=== PATIENT | male | born 1990 | race American Indian/Alaskan Native ===

== ENCOUNTER 2018-08-14 21:15 | Emergency (ER) | payer MEDICAID ==
[2018-08-15] MEDS ORDERED: MOTRIN PO ONE (02:40)
--- NOTE | 2018-08-15 02:45 | Emergency Department Report ---
ED ENT HPI - General Chief complaint: Dental/Oral Stated complaint: H/A; RT JAW PAIN Time Seen by Provider: 08/15/18 02:21 Source: patient Mode of arrival: Ambulatory Limitations: No Limitations - History of Present Illness Initial comments: 28-year-old -Citizen Of The [place] male with a past medical history paranoid schizophrenia comes in complaining of right jaw pain 3 days. He reports he took a Babay aspirin today which didn't help. Patient is unaware that needs to be repaired. MD complaint: tooth pain -: days(s) (3) Location: tooth # (30,5) Severity scale (0 -10): 6 Quality: aching Consistency: intermittent Improves with: none Worsens with: none - Related Data Previous Rx's Medication Instructions Recorded Last Taken Type Amoxicillin [Amoxicillin TAB] 875 mg PO BID #20 tablet 08/15/18 Unknown Rx Ibuprofen [Motrin 800 MG tab] 800 mg PO Q8HR #30 tablet 08/15/18 Unknown Rx Allergies Allergy/AdvReac Type Severity Reaction Status Date / Time bee sting Allergy Swelling Uncoded 08/14/18 22:39 ED Dental HPI - General Chief complaint: Dental/Oral Stated complaint: H/A; RT JAW PAIN Time Seen by Provider: 08/15/18 02:21 Source: patient Mode of arrival: Ambulatory Limitations: No Limitations - Related Data Previous Rx's Medication Instructions Recorded Last Taken Type Amoxicillin [Amoxicillin TAB] 875 mg PO BID #20 tablet 08/15/18 Unknown Rx Ibuprofen [Motrin 800 MG tab] 800 mg PO Q8HR #30 tablet 08/15/18 Unknown Rx Allergies Allergy/AdvReac Type Severity Reaction Status Date / Time bee sting Allergy Swelling Uncoded 08/14/18 22:39 ED Review of Systems ROS: Stated complaint: H/A; RT JAW PAIN Other details as noted in HPI ED Past Medical Hx - Past Medical History Previous Medical History?: Yes Hx Hypertension: Yes Hx Psychiatric Treatment: Yes (paranoid schizophrenia) - Surgical History Past Surgical History?: Yes Additional Surgical History: gynomastia, circumcission - Social History Smoking Status: Former Smoker Substance Use Type: None - Medications Home Medications: Home Medications Medication Instructions Recorded Confirmed Last Taken Type Amoxicillin [Amoxicillin TAB] 875 mg PO BID #20 tablet 08/15/18 Unknown Rx Ibuprofen [Motrin 800 MG tab] 800 mg PO Q8HR #30 tablet 08/15/18 Unknown Rx ED Physical Exam - General Limitations: No Limitations ED Course Vital Signs 08/14/18 22:39 Temperature 98.8 F Pulse Rate 89 Respiratory 16 Rate Blood Pressure 147/84 O2 Sat by Pulse 98 Oximetry Critical care attestation.: If time is entered above; I have spent that time in minutes in the direct care of this critically ill patient, excluding procedure time. ED Disposition Clinical Impression: Tooth ache Disposition: DC- TO HOME OR SELFCARE Is pt being admited?: No Does the pt Need Aspirin: No Condition: Stable Instructions: Toothache (ED), Dental Caries (ED) Additional Instructions: León antibiotics as prescribed take pain medication as needed and follow-up with a dentist. Prescriptions: Amoxicillin [Amoxicillin TAB] 875 mg PO BID #20 tablet Ibuprofen [Motrin 800 MG tab] 800 mg PO Q8HR #30 tablet Referrals: PRIMARY CARE, [Primary Care Provider] - 3-5 Days [facility] [Outside] - 3-5 Days [facility] [Outside] - 3-5 Days [facility] [Outside] - 3-5 Days
[2018-08-15 02:57] VITALS: BP 144/84
== END 2018-08-15 02:57 | disposition home or self-care (01) ==
LOC: ED 21:15
DX: K08.89 Other specified disorders of teeth and supporting structures (principal); I10 Essential (primary) hypertension; F20.0 Paranoid schizophrenia; N62 Hypertrophy of breast; Z87.891 Personal history of nicotine dependence; Z91.030 Bee allergy status
CPT/HCPCS: 99282

== ENCOUNTER 2022-06-05 21:57 | Emergency (ER) | payer MEDICAID ==
[2022-06-06 00:41] VITALS: BP 139/96
--- NOTE | 2022-06-06 08:33 | Emergency Department Report ---
ED General Adult HPI - General Chief complaint: Abdominal Pain Stated complaint: VOMITING BLOOD/BLOOD IN STOOL PUI?: No Time Seen by Provider: 06/06/22 08:33 Source: patient Mode of arrival: Ambulatory Limitations: No Limitations - History of Present Illness Initial comments: Patient is a very pleasant 32-year-old male that comes to the emergency room having no physical complaints. He is here with his significant other requesting referrals for local GI doctors. He is usually followed at [facility]. He needs to see a GI doctor once 1 in [facility] not [facility]. He denies any complaints at present but reports a history of GERD for which [facility] had recommended an EGD. Thus he wants a referral. He also has a history of sleep apnea and wants to see a optical laboratory technician. He does not have a local PCP. - Related Data Allergies Allergy/AdvReac Type Severity Reaction Status Date / Time bee sting Allergy Swelling Uncoded 08/14/18 22:39 ED Review of Systems ROS: Stated complaint: VOMITING BLOOD/BLOOD IN STOOL Other details as noted in HPI Comment: All other systems reviewed and negative ED Past Medical Hx - Past Medical History Previous Medical History?: Yes Hx Hypertension: Yes Hx GERD: Yes Hx Psychiatric Treatment: Yes (paranoid schizophrenia) Additional medical history: allergies, prediabetic - Surgical History Past Surgical History?: Yes Additional Surgical History: gynomastia, circumcission - Family History Family history: no significant - Social History Smoking Status: Never Smoker Substance Use Type: None ED Physical Exam - General Limitations: No Limitations General appearance: alert, in no apparent distress - Head Head exam: Present: atraumatic, normocephalic - Eye Eye exam: Present: normal appearance - ENT ENT exam: Present: mucous membranes moist - Neck Neck exam: Present: normal inspection - Respiratory Respiratory exam: Present: normal lung sounds bilaterally. Absent: respiratory distress - Cardiovascular Cardiovascular Exam: Present: regular rate, normal rhythm. Absent: systolic murmur, diastolic murmur, rubs, gallop - GI/Abdominal GI/Abdominal exam: Present: soft, normal bowel sounds - Rectal Rectal exam: Present: deferred - Extremities Exam Extremities exam: Present: normal inspection - Back Exam Back exam: Present: normal inspection - Neurological Exam Neurological exam: Present: alert, oriented X3 - Psychiatric Psychiatric exam: Present: normal affect, normal mood - Skin Skin exam: Present: warm, dry, intact, normal color. Absent: rash ED Course Vital Signs 06/06/22 00:34 Temperature 98.7 F Pulse Rate 91 H Respiratory 18 Rate Blood Pressure 139/96 O2 Sat by Pulse 98 Oximetry ED Medical Decision Making - Medical Decision Making Vital Signs 06/06/22 00:34 Temperature 98.7 F Pulse Rate 91 H Respiratory 18 Rate Blood Pressure 139/96 O2 Sat by Pulse 98 Oximetry Patient has no physical complaints on my exam. He has been here most of the night waiting to be seen. He is requesting referrals for complaints noted in HPI. Appropriate referrals have been given and he is discharged home. - Differential Diagnosis Referrals Critical care attestation.: If time is entered above; I have spent that time in minutes in the direct care of this critically ill patient, excluding procedure time. ED Disposition Clinical Impression: Referral needed Disposition: 01 HOME / SELF CARE / HOMELESS Is pt being admited?: No Does the pt Need Aspirin: No Condition: Stable Referrals: DENIS MONGE MD [Staff Physician] - 3-5 Days KELLIE ARTEAGA MD [Staff Physician] - 3-5 Days TERESA CARPENTER MD [Staff Physician] - 3-5 Days ROGELIO CROWDER MD [Staff Physician] - 3-5 Days ERVIN CHOWDHURY MD [Staff Physician] - 3-5 Days CHASE ROJO MD [Staff Physician] - 3-5 Days ARLIN JEFFERSON MD [Staff Physician] - 3-5 Days Time of Disposition: 09:27
== END 2022-06-06 10:04 | disposition home or self-care (01) ==
LOC: ED 21:57
DX: K21.9 Gastro-esophageal reflux disease without esophagitis (principal); I10 Essential (primary) hypertension; F20.0 Paranoid schizophrenia; Z98.890 Other specified postprocedural states; Z91.030 Bee allergy status
CPT/HCPCS: 99282